=== PATIENT | male | born 1935 | race Caucasian/White ===

== ENCOUNTER 2017-03-23 09:22 | Observation (INO) ==
[2017-03-23 09:58] LABS: Basophils % 0.2 %; Eosinophils # 0.2 K/mcL (0.0-0.6); Eosinophils % 2.4 %; Hematocrit 41.5 % (37.5-50.1); Hemoglobin 13.9 g/dL (12.9-16.9); Immature Granulocytes % 0.2 % (0-4); Immature Platelets 3.1 % (1.1-6.1); Lymphocytes # 2.2 K/mcL (0.6-4.6); Lymphocytes % 26.2 %; Mean Corpuscular HGB Conc 33.5 g/dL (31.6-35.5); Mean Corpuscular Hemoglobin 30.3 pg (28.0-33.3); Mean Corpuscular Volume 90.4 fL (83.0-100.0); Mean Platelet Volume 9.4 fL (9.4-12.4); Monocytes % 12.4 %; Neutrophils # 4.8 K/mcL (1.6-8.9); Platelet Count 229 K/mcL (140-400); Red Blood Count 4.59 M/mcL (4.19-5.50); Red Cell Distribution Width 13.1 % (11.5-14.5); Segmented Neutrophils % 58.6 %
[2017-03-23 10:02] LABS: INR 1.1
[2017-03-23 10:05] LABS: Activated Partial Thrombo Time 28.6 Seconds (26.0-36.0)
--- NOTE | 2017-03-23 10:12 | Emergency Department Note ---
START Narrative - START START: I examined this patient and my medical decision-making was reviewed with the Resident Physician. I agree with the documented findings, disposition and treatment plan as described except to the extent set forth below. 81 year old male presents to the ED wit complaints of chest pain midsternal for the past three days and states that he has risk facots including HTN and a HX of smoking and some family history for cardiac disease, associated with exertional dyspnea. Rosas states that he has also noticed that his blood pressure habve been elevated, denies headaches at this time and not on a blood thinner. We will do a cardiopulmonary workup on rosas and my clinical suspicioun is that he will need to be adimted for further workup secondary to age and risk factors and a heart score of at least 3.
[2017-03-23 10:14] LABS: Alanine Aminotransferase 21 Units/L (0-55); Albumin 3.6 g/dL (3.5-5.0); Albumin/Globulin Ratio 0.9 (1.1-2.2); Alkaline Phosphatase 76 Units/L (38-126); Aspartate Amino Transferase 26 Units/L (5-34); BUN/Creatinine Ratio 12 (6-26); Bilirubin,Direct 0.3 mg/dL (0.0-0.5); Bilirubin,Indirect 0.4 mg/dL (0.0-1.2); Bilirubin,Total 0.7 mg/dL (0.2-1.2); Blood Urea Nitrogen 13 mg/dL (8-26); Calcium 9.3 mg/dL (8.6-10.8); Carbon Dioxide 26 mEq/L (19-29); Chloride 102 mEq/L (98-109); Globulin 4.1 g/dL (2.4-3.5); Glucose 103 mg/dL (70-99); Lipase 50 Units/L (8-78); Osmolality,Calculated 282 (280-300); Sodium 136 mEq/L (136-145); Total Protein 7.7 g/dL (6.0-8.3); eGFR For African Americans > 60 (> 60); eGFR For Non-African Americans > 60 (> 60)
[2017-03-23] MEDS: Nitroglycerin 0.4 MG TAB.SUBL SL PRN ×2 (10:33→15:43)
--- NOTE | 2017-03-23 11:11 | Emergency Department Note ---
Disposition Clinical Impression: Chest pain Qualifiers: Chest pain type: unspecified Qualified Code(s): R07.9 - Chest pain, unspecified Disposition: Admitted As Inpatient Condition: Fair Referrals: Marco A Lopez DO [Primary Care Provider] - Time of Disposition: 11:23 Chest Pain HPI - General Chief Complaint: ED Chest Pain Stated Complaint: High B/P, CP Time Seen by Provider: 03/23/17 09:35 Source: patient Limitations: no limitations Vital Signs Reviewed: Yes Nursing Notes Reviewed: Yes - History of Present Illness HPI Narrative: Patient is an 81M with PMHx of Arthritis, hypertension, GERD, COPD and TIA presents with complaint of left-sided chest pain that started yesterday evening at 1900. The patient states that his chest pain started after he sat down from a long evening of deer hunting it was sudden left-sided 10/10 pain describes as pressure-like no radiation, no diaphoresis, no nausea. He states the pain improved when he stood up and walked around. The pain does not cause shortness of breath and he states that deep breaths do not make the pain worse. He also take a baby aspirin at that time. Patient states there is also checking his blood pressure throughout the evening and at night he noticed that it was in the 200s over 100s however today it has been 160s over 90s. At this time the patient describes the pain as a 7 out of 10. Denies any cardiac history however he has not had any cardiac workup done past 5 years. She states she does not currently take any medications and is seen by his primary care physician every 6 months. Severity scale (1-10): 7 - Related Data Home Medications Medication Instructions Recorded Confirmed No Known Home Drugs 03/23/17 03/23/17 Allergies Allergy/AdvReac Type Severity Reaction Status Date / Time aspirin Allergy See Verified 03/23/17 10:35 Comments All systems ED: reviewed and negative except as stated. Constitutional: Denies: fever, chills, weakness Eyes: Denies: eye pain, eye discharge ENT ED: Denies: ear pain, throat pain, congestion Cardiovascular: Reports: chest pain. Denies: palpitations, dyspnea on exertion , orthopnea, edema, syncope Respiratory: Denies: cough, dyspnea Gastrointestinal: Denies: abdominal pain, nausea, vomiting Genitourinary: Denies: urgency, dysuria Musculoskeletal: Denies: back pain, neck pain Neurological: Denies: headache, weakness Endocrine: Denies: fatigue Chest Pain PMH - Past Medical History Medical history: Reports: arthritis, COPD, GERD, hypertension, TIA Surgical history: Reports: appendectomy, herniorrhaphy Psychiatric history: Reports: no psych history - Social History Smoking Status: Never smoker Alcohol use: Reports: rarely Drug use: Reports: none Physical Exam - General Limitations: no limitations General appearance: alert, in no apparent distress - Head Head exam: atraumatic, normocephalic, normal inspection - Eye Eye exam: Present: normal appearance, PERRL - ENT ENT exam: normal exam, normal oropharynx, mucous membranes moist - Neck Neck exam: Present: normal inspection, full ROM, trachea midline - Chest Chest inspection: Present: normal inspection, symmetric chest wall rise. Absent : tenderness - Respiratory Respiratory exam: Present: normal lung sounds bilaterally. Absent: respiratory distress, wheezes, stridor, accessory muscle use - Cardiovascular Cardiovascular exam: Present: regular rate, normal rhythm, normal heart sounds - Abdominal Exam Abdominal exam: Present: soft, Non-Tender, normal bowel sounds - Extremities Exam Extremities exam: Present: normal inspection, full ROM. Absent: tenderness - Expanded Lower Extremity Exam Neurovascular/Tendon exam: Present: normal capillary refill. Absent: pulse deficit, motor deficit, sensory deficit - Back Exam Back exam: Present: normal inspection, full ROM - Neurological Exam Neurological exam: Present: alert, oriented X3 - Psychiatric Psychiatric exam: Present: normal affect, normal mood - Skin Skin exam: Present: warm, dry, intact, normal color Course Course Narrative: Patient is a 81-year-old male with a past medical history of hypertension, COPD , arthritis no cardiac history presents with a complaint of left-sided chest pain that is pressure-like that started yesterday after he got back from deer hunting while he was sitting. No inciting factors noticed however he states that when he gets up and walks around the pain improves. Plans to do a full cardiac workup of the patient and admit him for ACS rule out. - Reevaluation(s) Reevaluation #1: Patient receives a dose of clopidogrel due to his aspirin allergy patient states he received a full aspirin he breaks out in hives. Patient also received sublingual nitroglycerin which did not affect his pain. Patient's labs are all within normal limits at this time his EKG did show a left bundle- branch block however this is unchanged when compared to his prior EKG otherwise no signs of acute ischemia. The patient hospitalist at this time and admit the patient for ACS rule out. Patient agrees with this plan. Time: 11:19 Reevaluation #2: Dr. Hdez will accept patient. Vital Signs Temperature 97.6 F 03/23/17 09:26 Pulse Rate 64 03/23/17 09:26 Respiratory Rate 16 03/23/17 09:26 Blood Pressure 155/88 03/23/17 09:26 O2 Sat by Pulse Oximetry 99 03/23/17 09:26 Temperature 97.6 F 03/23/17 09:26 Pulse Rate 57 03/23/17 09:52 Respiratory Rate 16 03/23/17 09:52 Blood Pressure 169/78 03/23/17 09:54 O2 Sat by Pulse Oximetry 100 03/23/17 09:52 Oxygen Delivery Oxygen Delivery Room Air Chest Pain - Medical Records Medical records reviewed: Yes I reviewed the patient's medical records. - Lab Data Lab results reviewed: Yes I reviewed the patient's lab results. Result diagrams: 03/23/17 09:50 03/23/17 09:50 Lab Results 03/23/17 03/23/17 03/23/17 Range/Units 09:50 09:50 09:50 WBC 8.2 (4.3-11.1) K/mcL RBC 4.59 (4.19-5.50) M/mcL Hgb 13.9 (12.9-16.9) g/dL Hct 41.5 (37.5-50.1) % MCV 90.4 (83.0-100.0) fL MCH 30.3 (28.0-33.3) pg MCHC 33.5 (31.6-35.5) g/dL RDW 13.1 (11.5-14.5) % Plt Count 229 (140-400) K/mcL MPV 9.4 (9.4-12.4) fL Immature Gran % 0.2 (0-4) % Seg Neutrophils % 58.6 % Lymphocytes % 26.2 % Monocytes % 12.4 % Eosinophils % 2.4 % Basophils % 0.2 % Neutrophils # 4.8 (1.6-8.9) K/mcL Lymphocytes # 2.2 (0.6-4.6) K/mcL Monocytes # 1.0 (0.0-1.3) K/mcL Eosinophils # 0.2 (0.0-0.6) K/mcL Basophils # 0.0 (0.0-0.2) K/mcL Immature Plt Fraction 3.1 (1.1-6.1) % PT 12.0 (9.4-12.1) Seconds INR 1.1 APTT 28.6 (26.0-36.0) Seconds Sodium (136-145) mEq/L Potassium (3.5-4.5) mEq/L Chloride (98-109) mEq/L Carbon Dioxide (19-29) mEq/L BUN (8-26) mg/dL Creatinine (0.72-1.25) mg/dL Est GFR ( Amer) (> 60) Est GFR (Non-Af Amer) (> 60) BUN/Creatinine Ratio (6-26) Glucose (70-99) mg/dL Calculated Osmolality (280-300) Calcium (8.6-10.8) mg/dL Total Bilirubin (0.2-1.2) mg/dL Direct Bilirubin (0.0-0.5) mg/dL Indirect Bilirubin (0.0-1.2) mg/dL AST (5-34) Units/L ALT (0-55) Units/L Alkaline Phosphatase (38-126) Units/L Troponin I (0-0.03) ng/mL B-Natriuretic Peptide 63 (0-100) pg/mL Serum Total Protein (6.0-8.3) g/dL Albumin (3.5-5.0) g/dL Globulin (2.4-3.5) g/dL Albumin/Globulin Ratio (1.1-2.2) Lipase (8-78) Units/L 03/23/17 03/23/17 Range/Units 09:50 09:50 WBC (4.3-11.1) K/mcL RBC (4.19-5.50) M/mcL Hgb (12.9-16.9) g/dL Hct (37.5-50.1) % MCV (83.0-100.0) fL MCH (28.0-33.3) pg MCHC (31.6-35.5) g/dL RDW (11.5-14.5) % Plt Count (140-400) K/mcL MPV (9.4-12.4) fL Immature Gran % (0-4) % Seg Neutrophils % % Lymphocytes % % Monocytes % % Eosinophils % % Basophils % % Neutrophils # (1.6-8.9) K/mcL Lymphocytes # (0.6-4.6) K/mcL Monocytes # (0.0-1.3) K/mcL Eosinophils # (0.0-0.6) K/mcL Basophils # (0.0-0.2) K/mcL Immature Plt Fraction (1.1-6.1) % PT (9.4-12.1) Seconds INR APTT (26.0-36.0) Seconds Sodium 136 (136-145) mEq/L Potassium 4.0 (3.5-4.5) mEq/L Chloride 102 (98-109) mEq/L Carbon Dioxide 26 (19-29) mEq/L BUN 13 (8-26) mg/dL Creatinine 1.09 (0.72-1.25) mg/dL Est GFR ( Amer) > 60 (> 60) Est GFR (Non-Af Amer) > 60 (> 60) BUN/Creatinine Ratio 12 (6-26) Glucose 103 H (70-99) mg/dL Calculated Osmolality 282 (280-300) Calcium 9.3 (8.6-10.8) mg/dL Total Bilirubin 0.7 (0.2-1.2) mg/dL Direct Bilirubin 0.3 (0.0-0.5) mg/dL Indirect Bilirubin 0.4 (0.0-1.2) mg/dL AST 26 (5-34) Units/L ALT 21 (0-55) Units/L Alkaline Phosphatase 76 (38-126) Units/L Troponin I 0.01 (0-0.03) ng/mL B-Natriuretic Peptide (0-100) pg/mL Serum Total Protein 7.7 (6.0-8.3) g/dL Albumin 3.6 (3.5-5.0) g/dL Globulin 4.1 H (2.4-3.5) g/dL Albumin/Globulin Ratio 0.9 L (1.1-2.2) Lipase 50 (8-78) Units/L - Radiology Data Radiology results reviewed: Yes I reviewed the patient's radiology results. Chest X-Ray 03/23/17 09:39 IMPRESSION: No radiographic evidence of acute cardiopulmonary disease. D/ / Jonel Bartlett MD / Jonel Bartlett MD Interpreting Provider: Jonel Bartlett MD - EKG Data EKG attestation: Yes I reviewed and interpreted this EKG. EKG results narrative: I reviewed the patient's EKG that was done at 926 this morning it is sinus rhythm at a rate of 65 beats per minutes. Normal axis. MN interval is within normal limits. MN is 167, QRS is 140, QTC is 399, QTC is 411. EKG does show a left bundle branch block however when compared to his old EKG done on 2012 this is unchanged. No signs of ST elevation or depression ordered Q waves. Heart Score - Score History: Moderately Suspicious EKG: Non Specific repolarisation Disturbance Age: Greater than 65 Risk Factors: 1-2 risk factors Troponin: Less than normal limit HEART Score Total: 5
[2017-03-23] MEDS ORDERED: Naloxone 0.4 MG/ML INJ IVP PRN (11:35)
[2017-03-23] MEDS ORDERED: *HR* Morphine 2 MG/ML SYRINGE IVP PRN (11:38)
--- NOTE | 2017-03-23 12:27 | Internal Med History&Physical ---
Date of Encounter: 03/23/17 Time of Encounter: 12:26 Assessment and Plan (1) ACS (acute coronary syndrome) Current visit: Yes Status: Acute Continues to endorse chest pain 4/10. However this time it is no longer short, being described as dull and constant. He remained hemodynamically stable and in no distress. Patient reports hypertensive urgency last night is my suspicion that this is contributing to his chest pain. He remains hypertensive at this time. Initial workup in the emergency department negative troponin 0.01. EKG left bundle branch block, unchanged from baseline. Continue to rule out ACS Echocardiogram-patient reports a leaky mitral valve Sublingual nitroglycerin 81 mg ASA for antiplatelet therapy Continuous telemetry CBC, CMP, lipid panel in the morning (2) HTN (hypertension) Current visit: Yes Status: Acute Uncontrolled hypertension. Patient reports that it does not take any blood pressure medication at home. Blood pressure was 200/100 last evening. However at this time it is now is SBP of 160s Start lisinopril 2.5 mg daily Qualifiers: Hypertension type: essential hypertension Qualified Code(s): I10 - Essential (primary) hypertension (3) DVT prophylaxis Current visit: Yes Status: Acute Heparin 5000 units subcutaneous every 12 hours Internal Medicine - H&P: HPI Chief complaint: Chest pain Admitted From: Home Plans for Post Hospital Care: Home History of present illness: Mr. Ren is a 81 year old male with a PMH of arthritis, HTN, GERD, COPD, and TIA. He presents today to [facility] chief complaint of chest pain. Patient reports that approximately 3 days ago he began experiencing shortness of breath, left- sided chest pain started as sharp with radiation to the left shoulder. He denies chest pain increasing with exertion. Initially pain was reported 10/10 when it began however, at this time it is 4/10 and ongoing. Reports that he has no past cardiac history with the exception of hypertension. He was given Plavix and sublingual nitroglycerin in the emergency department without any improvement. Denies any fever, chills, nausea, vomiting, syncope, dizziness, palpitations. Has not had a cardiac workup within the last 5 years. EKG reveals LBBB, troponin negative at 0.01 Past Med Surg Social Fam HX - Past Medical History Medical history: arthritis, COPD, GERD, hypertension, TIA Psychiatric history: no psych history - Past Surgical History Surgical History: appendectomy, herniorrhaphy - Social History Smoking Status: Never smoker Smokeless Tobacco Status: No Alcohol use: rarely Drug use: none - Additional Family History Additional family history: Noncontributory Internal Medicine - H&P: Meds No Known Home Drugs 03/23/17 [History] 3 Allergy/AdvReac Type Severity Reaction Status Date / Time aspirin Allergy See Verified 03/23/17 10:35 Comments All Systems PM: A 10-system review of systems was performed and is negative for pertinent findings except as documented above in the HPI. - Constitutional Constitutional: no chills, no fatigue, no fever(s), no falls, no night sweats, no weakness, no weight gain, no weight loss - EENT Eyes: no change in vision, no discharge, no pain, no photophobia Ears: no ear discharge, no ear pain, no tinnitus Nose, mouth and throat: no dysphagia, no nasal discharge, no neck pain, no sore throat - Cardiovascular Cardiovascular ROS IM: as per HPI, chest pain, dyspnea on exertion, no diaphoresis, no dyspnea, no edema, no irregular heart rhythm, no lightheadedness , no palpitations, no paroxysmal nocturnal dyspnea, no syncope - Respiratory Respiratory: as per HPI, dyspnea on exertion, no cough, no dyspnea, no wheezing , no pain on inspiration, no chest congestion, no excessive phlegm production, no pain with cough - Gastrointestinal Gastrointestinal: no abdominal pain, no diarrhea, no hematemesis, no hematochezia, no melena, no nausea, no vomiting - Musculoskeletal Musculoskeletal ROS IM: no numbness, no tingling - Integumentary Integumentary IM: no rash, no unusual bruising - Neurological Neurological ROS: no confusion, no convulsions, no focal weakness, no numbness, no tingling, no tremor(s) - Hematologic/Lymphatic Hematologic/Lymphatic: no easy bruising - Constitutional Vitals: Temp Pulse Resp BP Pulse Ox 97.6 F 52 16 159/74 100 03/23/17 09:26 03/23/17 12:04 03/23/17 12:04 03/23/17 12:04 03/23/17 12:04 General appearance: Present: cooperative, A&O X 3, no acute distress, answers questions appropriately - Head Head exam: Present: atraumatic, normocephalic - Eye Eye exam: Present: PERRL, conjuntiva pink, sclera anicteric Pupils: Present: PERRL - Neck Neck exam general surgery: Present: supple, trachea midline. Absent: lymphadenopathy - Respiratory Respiratory exam: Present: CTAB. Absent: accessory muscle use, rales, rhonchi, wheezes - Cardiovascular Cardiovascular exam: Present: RRR, +S1, +S2. Absent: diastolic murmur, gallop, rubs, systolic murmur - Expanded Cardiovascular Exam Type of murmur: Present: systolic (Mild) - GI/Abdominal GI/Abdominal exam: Present: normal bowel sounds, soft, no peritoneal signs. Absent: distended, tenderness - Extremities Exam Extremities exam: Present: warm, radial pulses palpable and symmetrical. Absent : calf tenderness, cyanotic, pedal edema - Neurological Exam Neurological exam: Present: CN II-XII intact, oriented X3, no focal deficits. Absent: pronater drift, facial droop, speech deficit - Skin Skin exam: Present: dry, intact Internal Med - H&P Results - Labs CBC & Chem 7: 03/23/17 09:50 03/23/17 09:50 - EKG Data -: EKG Interpreted by Myself EKG shows normal: sinus rhythm - EKG Data Prior EKG available for review: no When compared to previous EKG: there is no significant change EKG comments: 03/23/17 12:36 Left bundle branch block - Diagnostic Studies Chest x-ray Status: image reviewed by me Additional comments: No acute cardiopulmonary process
--- NOTE | 2017-03-23 12:27 | Event Note ---
Date of Encounter: 03/23/17 Time of Encounter: 12:25 Patient seen and examined with nurse practitioner. Rule out acute coronary syndrome. serial troponin. EKG shows left bundle branch block unchanged from his baseline.
[2017-03-23] MEDS: *HR* Heparin 5,000 UNIT/ML VIAL SQ SCH (18:06)
[2017-03-24 04:51] LABS: Basophils % 0.3 %; Eosinophils # 0.1 K/mcL (0.0-0.6); Eosinophils % 1.2 %; Hematocrit 39.4 % (37.5-50.1); Immature Granulocytes % 0.3 % (0-4); Lymphocytes # 1.8 K/mcL (0.6-4.6); Lymphocytes % 22.8 %; Mean Corpuscular Hemoglobin 29.9 pg (28.0-33.3); Mean Corpuscular Volume 90.6 fL (83.0-100.0); Mean Platelet Volume 9.8 fL (9.4-12.4); Monocytes % 13.6 %; Neutrophils # 4.8 K/mcL (1.6-8.9); Platelet Count 208 K/mcL (140-400); Red Blood Count 4.35 M/mcL (4.19-5.50); Red Cell Distribution Width 13.1 % (11.5-14.5); Segmented Neutrophils % 61.8 %
[2017-03-24 05:12] LABS: Alanine Aminotransferase 21 Units/L (0-55); Albumin 3.1 g/dL (3.5-5.0); Albumin/Globulin Ratio 0.8 (1.1-2.2); Alkaline Phosphatase 73 Units/L (38-126); Aspartate Amino Transferase 24 Units/L (5-34); BUN/Creatinine Ratio 11 (6-26); Bilirubin,Total 0.9 mg/dL (0.2-1.2); Blood Urea Nitrogen 12 mg/dL (8-26); Calcium 9.2 mg/dL (8.6-10.8); Carbon Dioxide 26 mEq/L (19-29); Chloride 102 mEq/L (98-109); Chol/HDL Ratio 3.1 (0-4.9); Cholesterol 168 mg/dL (< 200); Globulin 3.9 g/dL (2.4-3.5); Glucose 91 mg/dL (70-99); HDL Cholesterol 54 mg/dL (40-59); LDL Cholesterol,Calculated 100 mg/dL (0-99); Osmolality,Calculated 281 (280-300); Potassium 4.7 mEq/L (3.5-4.5); Sodium 136 mEq/L (136-145); Triglycerides 72 mg/dL (< 150); eGFR For African Americans > 60 (> 60); eGFR For Non-African Americans > 60 (> 60)
[2017-03-24] MEDS: *HR* Heparin 5,000 UNIT/ML VIAL SQ SCH (06:00)
[2017-03-24 06:44] VITALS: BP 107/66
[2017-03-24] MEDS ORDERED: amLODIPine 5 MG TABLET PO SCH (09:00)
[2017-03-24] MEDS ORDERED: Aspirin 81 MG TAB.CHEW PO SCH (09:00)
--- NOTE | 2017-03-24 10:02 | Discharge Summary ---
Date of Encounter: 03/24/17 Time of Encounter: 07:30 - Discharge Diagnosis (1) Chest pain Priority: Primary Status: Acute Comments: Zbigniew Ren is a 81-year-old male with past medical history hypertension who presented to [facility] on 03/23/2017 with complaints of chest pain. He was placed in observation status for ACS rule out. His chest pain resolved with control of blood pressure and he was discharged home on 2016 with outpatient follow-up. 1. Chest pain: with intermittent chest pain for 3 days prior to presentation. Received Plavix and nitro on arrival with resolution of chest pain. Serial troponins negative. EKG with known LBBB. 03/23/2017 TTE with EF 55%, mild diastolic dysfunction and atypical septal motion consistent with BBB. No previous ischemic eval. No known CAD. Cardiac risk factors include hx tobacco use, uncontrolled hypertension and family history. Recommended inpatient stress test however patient declined and elected to follow up outpatient. Continue ASA. Patient advised to return to ER if has chest pain recurrence. Has appt with Cardiology on 04/05/2017. 2. Hypertensive Urgency: Uncontrolled and untreated. Patient reports being on 2 antihypertensives in the past but self discontinued as they made him sick. SBP 170s on arrival; patient reports SBP's in 200s day prior to presentation. BP improved with lisinopril. Change antihypertensive to amlodipine as SBP and low 100s. Patient advised to monitor blood pressure and to hold amlodipine if SBP less than 110. Strongly encouraged medication compliance. Has follow-up with PCP scheduled 03/28/2017. Qualifiers: Chest pain type: unspecified Qualified Code(s): R07.9 - Chest pain, unspecified (2) Hypertensive urgency Priority: Primary Status: Acute - Discharge Medications Prescriptions: amLODIPine [Norvasc] 5 mg PO DAILY #30 tablet Aspirin 81 mg PO DAILY #30 tab.chew Home Medications: Aspirin 81 mg PO DAILY #30 tab.chew 03/24/17 [Rx] amLODIPine [Norvasc] 5 mg PO DAILY #30 tablet 03/24/17 [Rx] Allergies/Adverse Reactions: 3 Allergy/AdvReac Type Severity Reaction Status Date / Time aspirin Allergy See Verified 03/23/17 10:35 Comments Procedures/tests Complete & Pending: Procedures Performed prior 72 hours Category Date Time Status EV echocardiogram Stat Y 03/23/17 11:37 Completed Date of admission: 03/23/17 11:31 Primary care physician: Gilbert Queen Discharging clinician: Lianna Mejia Anticipated date of discharge: 03/24/17 - Patient Status Disposition: Home, Self-Care Condition: Good Functional capacity at discharge: independent ambulation Overall status at discharge: patient is back to baseline - Discharge Instructions Instructions: Amlodipine (By mouth), Chest Pain (DC), Chronic Hypertension (DC) , Hypertension (DC) Follow Up With: Fransico Infante DO [Partnered Physician] - 04/05/17 11:30 am (This appointment will be in [address] ) Marco A Lopez DO [Primary Care Provider] - 03/28/17 1:45 pm Forms: ED Satisfaction Letter Additional Instructions: Take you blood pressure every morning and record results. If your systolic number (top number) is 110 or greater take your amlodipine, if less than 110 then do not take your amlodipine that day. Take the record of your daily blood pressures to your primary care doctor when you go to your follow up appointment. - Diet and Activity Activity: increase activity as tolerated Diet: low fat, low cholesterol Interval History: Seen and examined at bedside. Patient is new to me, information obtained from chart review and patient report. Patient says he feels back to baseline and wants to go home today. Discussed his cardiac risk factors and recommended inpatient stress test however he drank coffee this morning and does not want to stay overnight. He is agreeable to continue home ASA and BP medication. Strongly encouraged medication compliance and advised patient to return to the emergency room if chest pain recurs. He has no complaints all my exam, specifically denies chest pain, no shortness of breath, no abdominal pain, no nausea vomiting or diarrhea. Hospital course: See assessment and plan for hospital course - Time Spent with Patient Total time spent providing and/or coordinating discharge services: - Constitutional Vitals: Temp Pulse Resp BP Pulse Ox 97.8 F 69 16 107/66 94 03/24/17 06:40 03/24/17 06:40 03/24/17 06:40 03/24/17 06:40 03/24/17 06:40 General appearance: Present: cooperative, A&O X 3, no acute distress, answers questions appropriately - Head Head exam: Present: atraumatic, normocephalic - Eye Eye exam: Present: PERRL, conjuntiva pink, sclera anicteric Pupils: Present: PERRL - Neck Neck exam general surgery: Present: supple, trachea midline. Absent: lymphadenopathy - Respiratory Respiratory exam: Present: CTAB. Absent: accessory muscle use, rales, rhonchi, wheezes - Cardiovascular Cardiovascular exam: Present: RRR, +S1, +S2. Absent: diastolic murmur, gallop, rubs, systolic murmur Additional comments: Tele: IVCD - GI/Abdominal GI/Abdominal exam: Present: normal bowel sounds, soft, no peritoneal signs. Absent: distended, tenderness - Extremities Exam Extremities exam: Present: warm, radial pulses palpable and symmetrical. Absent : calf tenderness, cyanotic, pedal edema - Neurological Exam Neurological exam: Present: CN II-XII intact, oriented X3, no focal deficits. Absent: pronater drift, facial droop, speech deficit - Skin Skin exam: Present: dry, intact
--- NOTE | 2017-03-26 11:22 | Electrocardiograph Report ---
[place] [id number] Test Date: 2017-03-23 Pat Name: Zbigniew Ren Department: 104 Room: 3B11 Gender: M Line Repairer Tower: JESSIE : 1935 Requested By: Kavya See Order Number: [id number] Reading MD: Caitlyn Quijano Measurements Intervals [place] Rate: 65 P: 75 AL: 167 QRS: -25 QRSD: 140 T: 81 QT: 399 QTc: 411 Interpretive Statements SINUS RHYTHM WITH OCCASIONAL SUPRAVENTRICULAR PREMATURE COMPLEXES LEFT BUNDLE BRANCH BLOCK [120+ ms QRS DURATION, 80+ ms Q/S IN V1/V2, 85+ ms R IN I/aVL/V5/V6] Electronically Signed On 03-26-2017 11:20:30 EDT by Caitlyn Quijano
== END 2017-03-24 11:49 | disposition home or self-care (01) ==
LOC: 3BNU 09:22 → EMEROO 09:22 → 3BNU 12:27
PROVIDERS: ADMIT Nurse Practitioner; ATTEND Registered Nurse